=== PATIENT | female | born 2005 | race Caucasian/White ===

== ENCOUNTER 2025-01-01 22:38 | Emergency (ER) | payer SELFPAY ==
[~2025-01-01] VITALS: Ht 167.6 cm; Wt 87.0 kg
[2025-01-01 22:48] VITALS: BP 124/73; PULSE 113; RESP 20; TEMP 36.7; O2SAT 99
== END 2025-01-02 00:45 | disposition left against medical advice (07) ==
LOC: ER 22:38
DX: M79.602 Pain in left arm (principal); Z53.21 Procedure and treatment not carried out due to patient leaving prior to being seen by health care provider